=== PATIENT | female | born 1970 | race Caucasian/White ===

== ENCOUNTER 2016-12-09 08:42 | Emergency (ER) | payer MEDICAID ==
[~2016-12-09] VITALS: Ht 165.1 cm; Wt 93.5 kg
[2016-12-09 08:47] VITALS: Ht 165.1 cm; Wt 93.5 kg
[2016-12-09] MEDS ORDERED: SOD CHLORIDE 0.9% 500 ML IV STA (09:25)
[2016-12-09] MEDS ORDERED: KETOROLAC 30 MG INJ IV STA (09:25)
[2016-12-09 10:41] LABS: ADD UMIC YES; UR ASCORBIC ACID 20 mg/dL (NEGATIVE); UR BACTERIA FEW /HPF (NONE SEEN); UR BILIRUBIN (Dip) NEGATIVE (NEGATIVE); UR BLOOD (Dip) 2+ mg/dL (NEGATIVE); UR CLARITY CLEAR (CLEAR); UR COLOR YELLOW (YELLOW); UR GLUCOSE (Dip) NEGATIVE (NEGATIVE); UR KETONES (Dip) NEGATIVE (NEGATIVE); UR LEUKOCYTE ESTERASE (Dip) NEGATIVE Leu/ul (NEGATIVE); UR NITRITE (Dip) NEGATIVE (NEGATIVE); UR RBC 8 /HPF (0-5); UR SPECIFIC GRAVITY (Dip) 1.014 (1.003-1.030); UR SQUAMOUS EPITHELIAL CELL FEW /HPF (FEW); UR TOTAL PROTEIN (Dip) NEGATIVE (NEGATIVE); UR UROBILINOGEN (Dip) NEGATIVE (NEGATIVE)
[2016-12-09 11:15] LABS: BASOPHILS % 0.7 % (0.0-2.0); EOSINOPHILS # 0.2 10^3/ul (0.0-0.5); EOSINOPHILS % 3.4 % (0.0-7.0); HEMATOCRIT 41.3 % (37.0-47.0); HEMOGLOBIN 14.2 g/dl (12.0-16.0); LYMPHOCYTES # 1.4 10^3/ul (0.8-2.9); LYMPHOCYTES % 24.4 % (15.0-51.0); MEAN CORPUSCULAR HEMOGLOBIN 31.5 pg (29.0-33.0); MEAN CORPUSCULAR HGB CONC 34.4 g/dl (32.0-37.0); MEAN CORPUSCULAR VOLUME 91.6 fl (82.0-101.0); MEAN PLATELET VOLUME 10.4 fl (7.4-10.4); MONOCYTE # 0.5 10^3/ul (0.3-0.9); NEUTROPHILS % 62.8 % (39.0-77.0); PLATELET COUNT 259 10^3/UL (140-415); RED BLOOD COUNT 4.51 10^6/ul (4.20-5.40); RED CELL DISTRIBUTION WIDTH 12.4 % (11.5-14.5); WHITE BLOOD COUNT 5.6 10^3/ul (4.8-10.8)
[2016-12-09 11:33] LABS: CALCIUM 8.8 mg/dl (8.4-10.2); CREATININE 0.57 mg/dl (0.44-1.00); POTASSIUM 3.5 mmol/L (3.5-5.1)
[2016-12-09 12:13] VITALS: BP 162/78; PULSE 79; RESP 18
--- NOTE | 2016-12-09 12:23 | ERD ---
ER Documentation Chief Complaint Date/Time DATE: 12/09/16 TIME: 12:20 Chief Complaint vaginal bleeding for past 2 months, "this has happend before" HPI 46-year-old female with a history of uterine fibroids presenting with vaginal bleeding for the past 2 months. She was seen by keying machine operator at [facility], where she had an exam and biopsy done. She has been told it is not cancer. On ultrasound they found uterine fibroids, likely the source of her bleeding. She was placed on hormonal therapy, she does not know which medication, which has not helped. She changes her pad about every hour. She has blood clots. Now she is having increasing pressure in her lower abdomen with pain throughout the lower abdomen. Her pain is a 7 out of 10, radiating to the back. She describes as pressure and aching. No associated dysuria or hematuria. She has not followed up with her keying machine operator. She denies any fevers or chills. ROS All systems reviewed and are negative except as per history of present illness. Medications Home Meds Active Scripts Ibuprofen* (Motrin*) 600 Mg Tab, 600 MG PO Q6H Y for PAIN AND OR ELEVATED TEMP, #30 TAB Prov:FARIDA STALLINGS MD 12/09/16 Allergies Allergies: Coded Allergies: No Known Allergy (Unverified , 12/09/16) PMhx/Soc Medical and Surgical Hx: pt denies Medical Hx, pt denies Surgical Hx Hx Alcohol Use: No Hx Substance Use: No Hx Tobacco Use: No Smoking Status: Never smoker FmHx Family History: diabetes Physical Exam Vitals Vital Signs Date Time Temp Pulse Resp B/P Pulse Ox O2 Delivery O2 Flow Rate FiO2 12/09/16 12:13 79 18 162/78 99 Room Air 12/09/16 08:47 98.1 97 18 194/101 98 Physical Exam Const: No apparent distress, nontoxic, well-appearing Head: Atraumatic Eyes: Normal Conjunctiva ENT: Normal External Ears, Nose and Mouth. Neck: Full range of motion..~ No meningismus. Resp: Clear to auscultation bilaterally Cardio: Regular rate and rhythm, no murmurs. 2+ distal pulses. Abd: Soft, non tender, non distended. Normal bowel sounds Skin: No petechiae or rashes. No obvious pallor. Pelvic: Patient refused speculum exam. External vagina normal with no active bleeding visualized. Back: No midline or flank tenderness Ext: No cyanosis, or edema Neur: Awake and alert Psych: Normal Mood and Affect Result Diagram: 12/09/1692612/09/16926 Results 24 hrs Laboratory Tests Test 12/09/16 09:27 12/09/16 09:58 White Blood Count 5.610^3/ul Red Blood Count 4.5110^6/ul Hemoglobin 14.2g/dl Hematocrit 41.3% Mean Corpuscular Volume 91.6fl Mean Corpuscular Hemoglobin 31.5pg Mean Corpuscular Hemoglobin Concent 34.4g/dl Red Cell Distribution Width 12.4% Platelet Count 18337^3/UL Mean Platelet Volume 10.4fl Neutrophils % 62.8% Lymphocytes % 24.4% Monocytes % 8.0% Eosinophils % 3.4% Basophils % 0.7% Nucleated Red Blood Cells % 0.0/100WBC Neutrophils # (Manual) 410^3/ul Lymphocytes # 1.410^3/ul Monocytes # 0.510^3/ul Eosinophils # 0.210^3/ul Basophils # 0.010^3/ul Nucleated Red Blood Cells # 0.010^3/ul Sodium Level 137mmol/L Potassium Level 3.5mmol/L Chloride Level 103mmol/L Carbon Dioxide Level 23mmol/L Anion Gap 15 Blood Urea Nitrogen 10mg/dl Creatinine 0.57mg/dl Glucose Level 106mg/dl Calcium Level 8.8mg/dl Urine Color YELLOW Urine Clarity CLEAR Urine pH 6.0 Urine Specific [place] 1.014 Urine Ketones NEGATIVEmg/dL Urine Nitrite NEGATIVEmg/dL Urine Bilirubin NEGATIVEmg/dL Urine Urobilinogen NEGATIVEmg/dL Urine Leukocyte Esterase NEGATIVELeu/ul Urine Microscopic RBC 8/HPF Urine Microscopic WBC 1/HPF Urine Squamous Epithelial Cells FEW/HPF Urine Bacteria FEW/HPF Urine Hemoglobin 2+mg/dL Urine Glucose NEGATIVEmg/dL Urine Total Protein NEGATIVEmg/dl Current Medications Medications (Trade) Dose Ordered Sig/Isiah Route PRN Reason Start Time Stop Time Status Last Admin Dose Admin Sodium Chloride (NS) 500 ml @ 500 mls/hr Q1H STAT IV 12/09/16 09:25 12/09/16 10:24 DC 12/09/16 09:58 Ketorolac Tromethamine (Toradol) 30 mg ONCE STAT IV 12/09/16 09:25 12/09/16 09:28 DC 12/09/16 09:58 Procedures/MDM EMERGENT LABS AND DIAGNOSTIC STUDIES: Lab Results above were reviewed and interpreted by me. CBC: no anemia or evidence of infection CMP: No evidence of electrolyte abnormality, renal failure, hypoglycemia, liver failure, or biliary obstruction UA: no evidence of infection Radiology Results as interpreted by Radiology below were reviewed by Monika Stallings MD: Ultrasound pelvic: IMPRESSION: 1. Enlarged uterus with a 4.4 cm intramural fibroid within the body of the uterus. 2. Suggestion of a 3.0 cm left ovarian cyst. 3. Non-visualized right ovary. .Rosario Pascal MD, MD Date Time Electronically viewed and signed by .Rosario Pascal MD, MD on 12/09/2016 13: 07 Initial Nursing notes reviewed. Previous Medical Records requested via the Electronic Health Record. EMERGENCY DEPARTMENT COURSE / MEDICAL DECISION MAKING: Patient is presenting with 2 months of heavy vaginal bleeding associated with uterine fibroids. Vitals are stable. Labs did not show evidence of anemia or other abnormalities. There is no evidence of a ruptured ovarian cyst, ovarian torsion, and test was negative. I have a low suspicion for ovarian torsion. I suspect her bleeding is secondary to growing fibroids. Her ultrasound did confirm fibroids. She refused transvaginal ultrasound. She also refused a pelvic exam. I explained to her the reason I wanted to do a pelvic exam, but she would rather not do it and follow-up with her keying machine operator. She is reassured that she is not anemic today. That was really what she was concerned about. Return precautions were given. I urged her to follow-up with her keying machine operator within the next week to discuss possible surgical management of her fibroids or change in medication. Patient understands and will follow up. Patient's blood pressure was elevated (>120/80) but appears stable without evidence of hypertensive emergency or urgency. The patient was counseled about the risks of hypertension and urged to pursue outpatient monitoring and therapy within a week with their primary care physician. Departure Diagnosis: Primary Impression: Excessive vaginal bleeding Additional Impression: Fibroids Uterine leiomyoma location: unspecified location Qualified Code: D25.9 - Uterine leiomyoma, unspecified location Condition: Stable FARIDA STALLINGS MD Dec 09, 2016 12:23
--- NOTE | 2016-12-09 13:07 | RADRPT ---
PROCEDURE: US Pelvis. CLINICAL INDICATION: Vaginal bleeding. Patient is not . TECHNIQUE: Sonographic evaluation of the pelvis was performed utilizing transabdominal technique o nly, the patient refused a transvaginal scan. Curved array transabdominal transducer technique was utilized. Images were reviewed on the high-resolution PACS workstation. COMPARISON: No prior studies are available for comparison. FINDINGS: The uterus is enlarged and heterogeneous in appearance measuring about 12.6 x 6.6 x 8.5 cm. The end ometrium measures 3 mm in thickness, within normal limits. There is an intramural hypoechoic fibroi d within the body of the uterus measuring about 4.4 x 4.0 cm. Evaluation is somewhat limited due to lack of transvaginal imaging. The right ovary was not visualized. The left ovary measures about 3.2 x 1.7 x 2.9 cm. There is sug gestion of a 3.0 cm cyst within the left ovary although limited in evaluation on transabdominal imag ing. There are no adnexal masses. There is no significant free fluid in the pelvis. No other incide ntal abnormality is identified. RPTAT: QQ IMPRESSION: 1. Enlarged uterus with a 4.4 cm intramural fibroid within the body of the uterus. 2. Suggestion of a 3.0 cm left ovarian cyst. 3. Non-visualized right ovary. .Rosario Pascal MD, MD Date Time Electronically viewed and signed by .Rosario Pascal MD, on 12/09/2016 13:07 .T/
[2016-12-09] MEDS ORDERED: IBUP-1542 PO (13:26)
== END 2016-12-09 16:17 | disposition home or self-care (01) ==
LOC: E/R 08:42
DX: N93.9 Abnormal uterine and vaginal bleeding, unspecified (principal); D25.9 Leiomyoma of uterus, unspecified
CPT/HCPCS: 36415; 76856; 80048; 81001; 85025; 86850; 86900; 86901; 96374; J1885; J7040; Z7502

== ENCOUNTER 2017-11-08 17:52 | Emergency (ER) | END 2017-11-08 20:40 | disposition home or self-care (01) ==